=== PATIENT | female | born 1975 ===

== ENCOUNTER → 2017-11-13 19:29 | Outpatient (REF) | payer OTHER, SELFPAY ==
[2017-11-13 19:53] LABS: HEMOLYSIS < 15 (0-50); Iron 88 ug/dL (37-170)
[2017-11-13 19:55] LABS: Alanine Aminotransferase 24 IU/L (9-52); Albumin 4.5 g/dL (3.5-5.0); Albumin Globulin Ratio 1.6 (1.0-2.8); Alkaline Phosphatase 48 U/L (38-126); Aspartate Aminotransferase 22 IU/L (14-36); Bilirubin Total 1.1 mg/dL (0.2-1.3); Blood Urea Nitrogen 12 mg/dL (7-17); Calcium 9.8 mg/dL (8.4-10.2); Carbon Dioxide 28 mmol/L (22-32); Chloride 102 mmol/L (98-107); Cholesterol 190 mg/dL (140-199); Estimated Glomerular Filt Rate > 60.0 mL/min (>60); Globulin 2.8 g/dL (1.7-4.1); Glucose 95 mg/dL (70-100); HDL Cholesterol 73 mg/dL (40-60); HEMOLYSIS < 15 (0-50); LDL Cholesterol Calculated 103 mg/dL (<100); Magnesium 1.9 mg/dL (1.6-2.3); Potassium 4.2 mmol/L (3.4-5.1); Sodium 141 mmol/L (137-145); Total Protein 7.3 g/dL (6.3-8.2); Triglycerides 71 mg/dL (35-150)
[2017-11-13 20:04] LABS: Percent Iron Saturation 32 % (15-50); Total Iron Binding Capacity 278 ug/dL (265-497); Transferrin 221 mg/dL (206-381)
[2017-11-13 20:12] LABS: Free T3, Triiodothyronine Free 3.96 pg/mL (2.77-5.27); Free T4, Direct Thyroxine 1.55 ng/dL (0.78-2.19); T4 Total Thyroxine 8.22 ug/dL (5.5-11.0)
[2017-11-13 20:26] LABS: Cortisol AM (Before 10AM) 6.97 ug/dL (4.46-22.7)
[2017-11-13 20:47] LABS: Vitamin B12 655 pg/mL (239-931)
[2017-11-15 20:40] LABS: Sex Hormone Binding Globulin 128 nmol/L (17-124)
[2017-11-17 13:56] LABS: Estradiol 87 pg/mL
[2017-11-17 13:59] LABS: Progesterone 1.3 ng/mL
[2017-11-17 15:22] LABS: Dehydroepiandrosterone Sulfate 162 mcg/dL (19-231)
[2017-11-17 15:34] LABS: Triiodothyronine T3 Total 111 ng/dL (76-181)
[2017-11-18 10:52] LABS: Testosterone Free 2.2 pg/mL (0.1-6.4); Testosterone Total 38 ng/dL (2-45)
[2017-11-20 00:20] LABS: Methylmalonic Acid 194 nmol/L (87-318)
== END ==
LOC: LAB 19:29
PROVIDERS: Visit Provider Naturopath
DX: E03.8 Other specified hypothyroidism (principal); R53.83 Other fatigue; R51 Headache; K90.9 Intestinal malabsorption, unspecified
CPT/HCPCS: 80053; 80061; 82533; 82607; 82627; 82670; 83540; 83550; 83735; 83921; 84144; 84270; 84402; 84403; 84436; 84439; 84480; 84481